=== PATIENT | female | born 1930 | race Caucasian/White ===

== ENCOUNTER → 2016-09-23 | Outpatient (REF) ==
[2016-09-23 17:27] LABS: THYROID STIMULATING HORMONE 2.29 uIU/mL (0.465-4.680)
== END ==
LOC: ZLAB.WCH 14:50
PROVIDERS: Medical Genetics Clinical Genetics (M.D.)
DX: Z01.89 Encounter for other specified special examinations (principal)

== ENCOUNTER → 2018-12-28 | Outpatient (REF) | LOC: ZLAB.WCH 17:33 | DX: Z01.89 Encounter for other specified special examinations (principal) ==

== ENCOUNTER → 2019-05-04 | Outpatient (CLI) | payer MEDICARE, OTHER | LOC: COL.RAD 07:45 | DX: K21.0 Gastro-esophageal reflux disease with esophagitis (principal); K22.8 Other specified diseases of esophagus; K22.2 Esophageal obstruction | CPT/HCPCS: A9541 ==

== ENCOUNTER 2019-05-16 08:56 | Outpatient (RCR) | payer MEDICARE, OTHER, MEDICAID | END 2019-08-14 | disposition home or self-care (01) | LOC: WSST | DX: K22.2 Esophageal obstruction (principal); K21.0 Gastro-esophageal reflux disease with esophagitis; K22.8 Other specified diseases of esophagus ==

== ENCOUNTER → 2019-09-06 | Outpatient (CLI) | payer MEDICARE, OTHER, MEDICAID | LOC: MHCPAIN 10:04 | DX: M47.817 Spondylosis without myelopathy or radiculopathy, lumbosacral region (principal); M54.16 Radiculopathy, lumbar region | CPT/HCPCS: G0463 ==

== ENCOUNTER → 2019-09-08 | Outpatient (CLI) | payer MEDICARE, OTHER, MEDICAID | LOC: MHCPAIN 14:01 | DX: M96.1 Postlaminectomy syndrome, not elsewhere classified (principal); M43.19 Spondylolisthesis, multiple sites in spine | CPT/HCPCS: J1040; Q9967 ==

== ENCOUNTER → 2019-10-12 | Outpatient (CLI) | payer MEDICARE, OTHER, MEDICAID | LOC: MHCPAIN 12:30 | DX: M54.5 Low back pain (principal); M54.16 Radiculopathy, lumbar region; M47.817 Spondylosis without myelopathy or radiculopathy, lumbosacral region; M96.1 Postlaminectomy syndrome, not elsewhere classified; F17.210 Nicotine dependence, cigarettes, uncomplicated | CPT/HCPCS: G0463 ==